=== PATIENT | female | born 1980 | race Asian ===

== ENCOUNTER 2022-09-12 22:19 | Emergency (ER) | payer BC, SELFPAY ==
[2022-09-12 22:19] VITALS: BP 120/69; PULSE 76; RESP 15; TEMP 36.4; O2SAT 98
--- NOTE | 2022-09-13 00:12 | EX.ED.DYSGE1 ---
HPI History of Present Illness Chief Complaint: Allergic Reaction Informant: patient Onset/Context/Timing Onset: Hours (4+) Context: Gradual Onset Timing: Continuous Quality: pruritic Location: upper chest, neck, BUE Current Severity: Mild Maximum Severity: Mild Worsened by: nothing Relieved by: nothing but hasn't taken anything Associated Symptoms Associated Symptoms: none Narrative Narrative: Patient has been on amoxicillin for the last 3 days or so after having had a dental procedure on the right maxillary mandibular teeth and gingiva, and she did started breaking out in an itchy red rash tonight. She is post to leave on a flight to go to [place] for a conference in the morning. She had an allergy to an unknown antibiotic in the past but could not remember what it was. She is on no other medications and has not tried anything yet. She denies any dyspnea, throat swelling, tongue swelling, lightheadedness, syncope, or any other systemic symptoms. She states her mouth and teeth are doing better. PFSH PFSH Medical History no medical history no medical history Home Medications acetaminophen 500 mg tablet 1,000 mg PO Q6H PRN Pain 09/12/22 [History Last Taken Unknown] ibuprofen 400 mg tablet 400 mg PO Q6H 09/12/22 [History Last Taken Unknown] clindamycin HCl 150 mg capsule 300 mg PO 4X/DAY #56 CAPSULES 09/13/22 [Rx Last Taken Unknown] Allergy/AdvReac Type Severity Reaction Status Date / Time No Known Allergies Allergy Verified 12/23/16 11:05 Social History Smoking Status: Never smoker ROS ROS ED Constitutional Constitutional ED: Denies chills or fever(s) Eyes Eyes: Denies change in vision or double vision ENT ENT ED: Reports dental pain; Denies sinus pain or throat swelling Cardiovascular Cardiovascular: Denies chest pain, leg edema or palpitations Respiratory/Chest Respiratory/Chest: Denies cough or dyspnea Integumentary Reports as per HPI, pruritus and rash; Denies abscess Neurologic Neurologic: Denies headache(s), paresthesias or weakness EXAM Physical Exam Const Vital Signs: 09/12/22 22:19 Temperature 97.5 F L Temperature Source Temporal Pulse Rate 76 Respiratory Rate 15 Blood Pressure 120/69 Blood Pressure Mean 86 Pulse Ox 98 Oxygen Delivery Method Room Air Positive well nourished and well developed General Appearance ED: well developed and NAD HEENT HEENT Narrative: Normal-appearing nontender dentition and gingiva. No trismus. Normal voice. No stridor. Face and Sinus: sinuses nontender Throat: posterior oropharynx normal Eyes PERRL and EOMs intact bilaterally Neck no lymphadenopathy and supple Resp normal respiratory effort Extremity normal to inspection General Extremety ED: Negative for edema General Extremity: Negative for edema Neuro oriented x3 and CN's II-XII intact bilaterally Sensorium / Orientation: alert Gait (Neuro): normal gait Psych mental status grossly normal and thought process normal Skin no wounds Skin Narrative: Mild urticaria on upper chest, small patches on both upper extremities. No other lesions, no petechia or bullae. No oral lesions. MDM MDM MDM Narrative Medical decision making narrative: Patient was given Benadryl, advised to discontinue the amoxicillin and a new prescription given for clindamycin which the pharmacy refill for her here tonight. She asked about steroids, I do not think she needs systemic steroids at this time she does not have any concerning dangerous symptoms just the rash and has been for 4 or 5 hours, and seems very stable. Her vital signs are normal she is not anaphylactic or anaphylactoid. Discharge Plan Triage Chief Complaint: Allergic Reaction ED Provider: Ace [facility] Dx/Rx/DC Orders Clinical Impression: Allergic reaction due to antibacterial drug Instructions: ED Drug Reaction, Other Prescriptions: New clindamycin HCl 150 MG capsule 300 mg PO 4X/DAY Qty: 56 0RF Discontinued amoxicillin 500 mg capsule 500 mg PO TID No Action acetaminophen [Tylenol Ex Str Rapid Release] 500 mg Tablet 1,000 mg PO Q6H PRN (Reason: Pain) ibuprofen [Motrin] 400 mg Tablet 400 mg PO Q6H Primary Care Provider: Care Physician,No Primary Referrals: Care Physician,No Primary [Primary Care Provider] - Doctor,Your [Non-Staff] - As Needed Activity Restrictions/Additional Instructions: Use Benadryl (diphenhydramine) 50 mg up to every 4 hours as needed for itching/rash Disposition Disposition: Home, Self Care
[2022-09-13 00:26] VITALS: PULSE 78; RESP 18; O2SAT 98
[2022-09-13] MEDS: DiphenhydrAMINE 25 MG Capsule 50 MG PO (00:27)
== END 2022-09-13 00:25 | disposition home or self-care (01) ==
PROVIDERS: Emergency Provider Emergency Medicine; Visit Provider Emergency Medicine
DX: R21 Rash and other nonspecific skin eruption (principal); T36.0X5A Adverse effect of penicillins, initial encounter
CPT/HCPCS: 99283